=== PATIENT | male | born 1990 ===

== ENCOUNTER 2021-08-19 11:31 | Emergency (ER) | payer SELFPAY ==
[2021-08-19 11:41] VITALS: BP 131/82
[2021-08-19] MEDS ORDERED: hydrOXYzine PAMOATE 25 MG CAP PO ONE (11:44)
--- NOTE | 2021-08-19 12:22 | Emergency Department Report ---
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" HE TELLS ME HE JUST LEFT HIS ID APPNT- HE HAS HIV AND IS TRYING TO GET HIS MEDS - HE IS NEW TO [place] HE STATES THIS SITUATION IS MAKING HIM ANXIOUS NO MH DISEASE NO CP NO SOB NAD ON EXAM NO HI NO SI NO A/V HALLUCINATIONS HE ADDS THAT HE NEEDS A WORK NOTE FOR HIS JOB SINCE HE WENT TO THE MD TODAY -: Sudden Consistency: intermittent Improves with: none Worsens with: none Associated Symptoms: denies other symptoms Treatments Prior to Arrival: none - Related Data Allergies Allergy/AdvReac Type Severity Reaction Status Date / Time No Known Allergies Allergy Verified 08/19/21 11:41 ED Review of Systems ROS: Stated complaint: ANXIEITY Other details as noted in HPI Comment: All other systems reviewed and negative ED Past Medical Hx - Past Medical History Previous Medical History?: Yes Additional medical history: hiv - Surgical History Past Surgical History?: No - Family History Family history: no significant - Social History Smoking Status: Never Smoker Substance Use Type: None ED Physical Exam - General Limitations: No Limitations General appearance: alert, in no apparent distress - Head Head exam: Present: atraumatic, normocephalic - Eye Eye exam: Present: normal appearance - ENT ENT exam: Present: mucous membranes moist - Neck Neck exam: Present: normal inspection - Respiratory Respiratory exam: Present: normal lung sounds bilaterally. Absent: respiratory distress - Cardiovascular Cardiovascular Exam: Present: regular rate, normal rhythm. Absent: systolic murmur, diastolic murmur, rubs, gallop - GI/Abdominal GI/Abdominal exam: Present: soft, normal bowel sounds - Rectal Rectal exam: Present: deferred - Extremities Exam Extremities exam: Present: normal inspection - Back Exam Back exam: Present: normal inspection - Neurological Exam Neurological exam: Present: alert, oriented X3 - Psychiatric Psychiatric exam: Present: normal affect, normal mood - Skin Skin exam: Present: warm, dry, intact, normal color. Absent: rash ED Course Vital Signs 08/19/21 11:39 Temperature 98.9 F Pulse Rate 85 Respiratory 14 Rate Blood Pressure 131/82 [Left] O2 Sat by Pulse 100 Oximetry ED Medical Decision Making - Medical Decision Making Vital Signs 08/19/21 11:39 Temperature 98.9 F Pulse Rate 85 Respiratory 14 Rate Blood Pressure 131/82 [Left] O2 Sat by Pulse 100 Oximetry [facility] FOR ANXIETY DC HOME WITH DC PLAN OF CARE INCLUDING PCP REFERRAL. WORK NOTE PROVIDED. PT VERBALIZES UNDERSTANDING OF DC PLAN OF CARE - Differential Diagnosis ANXIETY/WORK NOTE Critical care attestation.: If time is entered above; I have spent that time in minutes in the direct care of this critically ill patient, excluding procedure time. ED Disposition Clinical Impression: Anxiety, Hx of human immunodeficiency virus infection Disposition: HOME / SELF CARE / HOMELESS Is pt being admited?: No Does the pt Need Aspirin: No Condition: Stable Instructions: Managing Anxiety, Adult Additional Instructions: follow up with pcp and ID as we discussed pcp referral below Referrals: HARPREET RUBIO MD [Staff Physician] - 3-5 Days Forms: Work/School Release Form(ED) Time of Disposition: 12:29
== END 2021-08-19 12:30 | disposition home or self-care (01) ==
LOC: ED 11:31
DX: F41.9 Anxiety disorder, unspecified (principal)
CPT/HCPCS: 99282; Q0177